=== PATIENT | male | born 1950 | race Caucasian/White ===

== ENCOUNTER → 2024-07-04 14:03 | Outpatient (CLI) | payer MEDICARE, OTHER, SELFPAY ==
[2024-07-04 15:37] LABS: Add Manual Diff / Slide Review NO; Basophils Absolute Auto 100 /uL (0-100); Eosinophils Absolute Auto 700 /uL (0-450); Eosinophils Percent Auto 9.7 % (2-4); Hematocrit 47.2 % (41-53); Hemoglobin 15.5 g/dL (13.5-17.5); Lymphocytes Absolute Auto 1900 /uL (1100-4500); Lymphocytes Percent Auto 24.5 % (25-40); Mean Corpuscular HGB Conc 32.9 % (30-36); Mean Corpuscular Hemoglobin 31.1 PG (26-34); Mean Corpuscular Volume 94.7 fL (80-100); Monocytes Absolute Auto 700 /uL (0-900); Monocytes Percent Auto 8.9 % (3-14); Neutrophils Absolute Auto 4200 /uL (1500-7000); Neutrophils Percent Auto 55.9 % (50-75); Platelet Count 148 X10^3/uL (150-400); Red Blood Cell Count 4.98 X10^6/uL (4.5-5.9); Red Cell Distribution Width 13.7 % (11.6-14.8); White Blood Cell Count 7.6 X10^3/uL (4.5-11.0)
[2024-07-04 16:02] LABS: Alanine Aminotransferase 32 IU/L (<50); Albumin 4.2 g/dL (3.5-5.0); Albumin Globulin Ratio 1.8 (1.0-2.8); Alkaline Phosphatase 107 U/L (38-126); Aspartate Aminotransferase 38 IU/L (17-59); BUN Creatinine Ratio 19.6 (6-22); Bilirubin Total 0.5 mg/dL (0.2-1.3); Blood Urea Nitrogen 39 mg/dL (9-20); Calcium 9.5 mg/dL (8.4-10.2); Carbon Dioxide 26 mmol/L (22-32); Chloride 104 mmol/L (98-107); Cholesterol 142 mg/dL (140-199); Estimated Glomerular Filt Rate 34 mL/min (>60); Globulin 2.4 g/dL (1.7-4.1); Glucose 134 mg/dL (80-110); HDL Cholesterol 35 mg/dL (40-60); HEMOLYSIS < 15 (0-50); LDL Cholesterol Calculated 61 mg/dL (<100); Potassium 4.3 mmol/L (3.4-5.1); Sodium 140 mmol/L (137-145); Total Protein 6.6 g/dL (6.3-8.2); Triglycerides 230 mg/dL (35-150)
[2024-07-04 18:14] LABS: Creatinine Urine Random 49.06 mg/dL
[2024-07-04 18:41] LABS: Microalbumin Urine Random 52.5 mg/dL (0-1.6)
== END ==
PROVIDERS: PCP Family Medicine; Referring Provider Family Medicine; Visit Provider Family Medicine
DX: E11.22 Type 2 diabetes mellitus with diabetic chronic kidney disease (principal); Z79.4 Long term (current) use of insulin; E78.5 Hyperlipidemia, unspecified; Z86.73 Personal history of transient ischemic attack (TIA), and cerebral infarction without residual deficits; N18.30 Chronic kidney disease, stage 3 unspecified; I12.9 Hypertensive chronic kidney disease with stage 1 through stage 4 chronic kidney disease, or unspecified chronic kidney disease
CPT/HCPCS: 36415; 80053; 80061; 82043; 82570; 83036; 85025

== ENCOUNTER 2024-08-09 10:49 | Emergency (ER) | payer MEDICARE, OTHER, SELFPAY ==
[2024-08-09] VITALS (18 sets, daily range): BP systolic 144–231; BP diastolic 68–95; PULSE 65–73; RESP 15–18; TEMP 36.7; O2SAT 92–97; BMI 34.9
--- NOTE | 2024-08-09 11:00 | DI.RAD.S_ITS ---
PROCEDURE: XR CHEST 1V INDICATIONS: Possible stroke TECHNIQUE: One view of the chest was acquired. COMPARISON: None. FINDINGS: Surgical changes and devices: None. Lungs and pleura: No dense consolidation or pleural effusions. Mediastinum: Normal heart size Bones and chest wall: Degenerative changes IMPRESSION: No acute radiographic abnormality on this single view study. Dictated by: Ayad Johnson M.D. on 08/09/2024 at 11:15 Approved by: Ayad Johnson M.D. on 08/09/2024 at 11:15
--- NOTE | 2024-08-09 11:00 | DI.CT.S_ITS ---
PROCEDURE: CT HEAD/BRAIN WO CON INDICATIONS: blurred vision right eye TECHNIQUE: Noncontrast 4.5 mm thick angled axial sections acquired from the foramen magnum to the vertex, with coronal and sagittal reformats. For radiation dose reduction, the following was used: automated exposure control, adjustment of mA and/or kV according to patient size. COMPARISON: None. FINDINGS: Image quality: Excellent CSF spaces: Basal cisterns are patent. Lateral ventricles are symmetric. Volume: Vascular calcifications. Periventricular white matter disease is commonly seen with chronic microangiopathy. Volume loss is present. These findings are moderate Brain: No intracranial hemorrhage. Frausto-white differentiation is grossly maintained. Craniofacial structures: No significant paranasal sinus opacity. No mastoid effusions. Lens replacements. IMPRESSION: No acute intracranial abnormality. If there is high concern for parenchymal pathology, consider further evaluation with MRI. Lens replacements. No significant noncontrast CT abnormality in the right orbit. Dictated by: Ayad Johnson M.D. on 08/09/2024 at 11:16 Approved by: Ayad Johnson M.D. on 08/09/2024 at 11:17
--- NOTE | 2024-08-09 11:03 | EKG_ITS ---
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
[2024-08-09 11:28] LABS: Add Manual Diff / Slide Review NO; Basophils Absolute Auto 100 /uL (0-100); Basophils Percent Auto 0.8 % (0-2); Eosinophils Absolute Auto 600 /uL (0-450); Hemoglobin 15.3 g/dL (13.5-17.5); Lymphocytes Absolute Auto 1600 /uL (1100-4500); Lymphocytes Percent Auto 23.9 % (25-40); Mean Corpuscular HGB Conc 33.4 % (30-36); Mean Corpuscular Hemoglobin 31.5 PG (26-34); Mean Corpuscular Volume 94.3 fL (80-100); Monocytes Absolute Auto 600 /uL (0-900); Monocytes Percent Auto 9.6 % (3-14); Neutrophils Absolute Auto 3800 /uL (1500-7000); Neutrophils Percent Auto 56.7 % (50-75); Platelet Count 161 X10^3/uL (150-400); Red Blood Cell Count 4.88 X10^6/uL (4.5-5.9); Red Cell Distribution Width 13.8 % (11.6-14.8); White Blood Cell Count 6.8 X10^3/uL (4.5-11.0)
[2024-08-09 11:42] LABS: INR 0.9 (0.9-1.3); Prothrombin Time 10.1 SECONDS (9.4-12.5)
[2024-08-09 11:45] LABS: PTT Partial Thromboplastin Tim 32 SECONDS (25.1-36.5)
[2024-08-09 11:50] LABS: Alanine Aminotransferase 34 IU/L (<50); Albumin 4.2 g/dL (3.5-5.0); Albumin Globulin Ratio 1.6 (1.0-2.8); Alkaline Phosphatase 141 U/L (38-126); Aspartate Aminotransferase 37 IU/L (17-59); BUN Creatinine Ratio 23.3 (6-22); Bilirubin Total 0.6 mg/dL (0.2-1.3); Blood Urea Nitrogen 42 mg/dL (9-20); Calcium 9.1 mg/dL (8.4-10.2); Carbon Dioxide 25 mmol/L (22-32); Chloride 101 mmol/L (98-107); Creatine Kinase 187 U/L (55-170); Estimated Glomerular Filt Rate 39 mL/min (>60); Globulin 2.6 g/dL (1.7-4.1); Glucose 302 mg/dL (80-110); HEMOLYSIS 33 (0-50); Magnesium 2.5 mg/dL (1.6-2.3); Sodium 134 mmol/L (137-145); Total Protein 6.8 g/dL (6.3-8.2)
[2024-08-09 12:01] LABS: Troponin I 0.015 ng/mL (0.01-0.034)
[2024-08-09 13:15] LABS: Appearance Urine UA CLEAR; Bilirubin Urine UA NEGATIVE (NEGATIVE); Color Urine UA YELLOW; Glucose Urine UA 2+ g/dL (Negative); Ketones Urine UA NEGATIVE (NEGATIVE); Leukocyte Esterase Urine UA NEGATIVE (NEGATIVE); Nitrite Urine UA NEGATIVE (Negative); Occult Blood Urine UA NEGATIVE (Negative); Protein Urine UA 1+ (Negative); Ur Creatinine Normal (Normal); Ur Specific Gravity Normal (Normal); Urine Amphetamines Negative (Negative); Urine Barbiturates Negative (Negative); Urine Benzodiazepines Negative (Negative); Urine Cocaine Negative (Negative); Urine MDMA Negative (Negative); Urine Methadone Negative (Negative); Urine Methamphetamines Negative (Negative); Urine Opiates Negative (Negative); Urine Oxycodone Negative (Negative); Urine Phencyclidine Negative (Negative); Urine THC Negative (Negative); Urine Tricyclic Antidepressant Negative (Negative); Urine pH Normal (Normal); Urobilinogen Urine UA 0.2 E.U./dL (0.2); pH Urine UA 6.5 (4.5-8.0)
[2024-08-09 13:23] LABS: Bacteria Urine None Seen; Culture Indicated Urine Cult Not Indicated; RBC Urine None Seen (0-5/HPF); Squamous Epithelial Cell Urine None Seen (0-5/HPF); Urine Volume 10mL (spun); WBC Urine None Seen (0-5/HPF)
--- NOTE | 2024-08-09 13:50 | ED.GENADULT ---
HPI - General Adult General Chief complaint: Eye Problems Stated complaint: blurred vision Time Seen by Provider: 08/09/24 11:09 Mode of arrival: Ambulatory History of Present Illness HPI narrative: 74-year-old gentleman with a history of hypertension, hyperlipidemia diabetes prior cataract surgery, left eye abnormality that at baseline leaves him seeing outlines and shapes comes in with complaints of decreased vision in the right eye since August 07. He describes slightly blurry, no pain no limitation to extraocular eye movement. No significant headaches and no other neurologic findings. Related Data Home Medications Medication Instructions Recorded Confirmed albuterol sulfate 90 mcg/actuation inhalation 06/12/24 07/04/24 aerosol inhaler atorvastatin 80 mg tablet mg PO DAILY 07/04/24 07/04/24 clopidogrel 75 mg tablet mg PO DAILY 07/04/24 07/04/24 empagliflozin 25 mg tablet mg PO DAILY 07/04/24 07/04/24 (Jardiance) gabapentin 400 mg capsule mg PO BID 07/04/24 07/04/24 insulin glargine 100 unit/mL (3 50 unit SUBCUT DAILY 07/04/24 07/04/24 mL) subcutaneous pen (Lantus Solostar U-100 Insulin) Previous Rx's Medication Instructions Recorded losartan 25 mg tablet 25 mg PO DAILY blood pressure #90 07/04/24 tabs trazodone 50 mg tablet 50 mg PO BEDTIME PRN sleep #90 tabs 07/27/24 amlodipine 10 mg tablet 10 mg PO DAILY #90 tabs 07/30/24 glimepiride 4 mg tablet 4 mg PO BID #180 tabs 07/30/24 Allergies Allergy/AdvReac Type Severity Reaction Status Date / Time No Known Drug Allergies Allergy Verified 08/09/24 10:51 Review of Systems Review of Systems Narrative: Pertinent positive and negative findings as per HPI Patient History Medical History (Updated 08/09/24 @ 14:02 by Kathrin Escobar MD) History of stroke Hyperlipidemia, unspecified Benign essential hypertension Type 2 diabetes mellitus with chronic kidney disease, with long-term current use of insulin Social History Smoking Status: Former smoker Smoking Status: Former smoker Exam Initial Vital Signs Initial Vital Signs: Vital Signs Temperature 98.1 F 08/09/24 10:51 Pulse Rate 70 08/09/24 10:51 Respiratory Rate 15 08/09/24 10:51 Blood Pressure 231/91 H 08/09/24 10:51 Pulse Oximetry 95 08/09/24 10:51 Oxygen Delivery Method Room Air 08/09/24 10:51 General: Healthy appearing, in no acute distress. Able to give a complete and coherent history. Well-nourished well-developed HEENT: Moist mucous membranes, normal sclera with reactive pupils, retinal exam is attempted bilaterally. He does have cataract lens is in place. An and unable to focus passed the cataract lenses. There was no tenderness around the right eye. He has had prior eyelid surgery and there is some subtle differences that he feels or his baseline. Visual acuity is 20/70 on the right and shapes and outlines on the left which is his baseline. Eye pressure on the right is 20 measured with Isaac-Pen. Respiratory: Lungs are clear to auscultation, no wheezing no rales no rhonchi. Full and symmetrical air movement Cardiac: Regular rate and rhythm no murmurs no bruits Abdomen: Soft, nontender, good bowel tones, no flank pain Skin: Warm and dry, no rashes Neurologic: Grossly neurologically intact with no obvious asymmetries or abnormalities. NIH is 0 Extremities: No trauma, well perfused Psych: Cooperative, appropriate insight and affect Course Orders Ordered: ED Orders 08/09/24 11:00 CT head/brain wo con Stat XR chest 1V Stat EKG-12 Lead Stat 08/09/24 11:18 Complete Blood Count AUTO DIFF Stat Comprehensive Metabolic Panel Stat Magnesium Stat PTT Partial Thromboplastin [place] Stat Prothrombin Time INR Stat Troponin & CK Cardiac Panel Stat 08/09/24 11:40 Urinalysis and Microscopic Stat Urine Drug Screen, Rapid Stat Ondansetron HCl (Ondansetron 4 Mg/2 Ml Inj) 4 mg IV NOW PRN PRN Reason: Nausea And Vomiting Ondansetron HCl (Ondansetron 4 Mg Odt) 4 mg SL NOW PRN PRN Reason: Nausea And Vomiting Vital Signs Vital signs: Vital Signs - 8 hr 08/09/24 10:51 08/09/24 10:57 08/09/24 10:58 Temperature 98.1 F Pulse Rate 70 Respiratory Rate 15 Blood Pressure 231/91 H 218/93 H Pulse Oximetry 95 93 Oxygen Delivery Method Room Air 08/09/24 10:58 08/09/24 11:00 08/09/24 11:00 Temperature Pulse Rate 71 73 Respiratory Rate Blood Pressure 211/88 H Pulse Oximetry 93 95 Oxygen Delivery Method Room Air 08/09/24 11:12 08/09/24 11:12 08/09/24 11:30 Temperature Pulse Rate 73 69 Respiratory Rate 18 Blood Pressure 212/89 H Pulse Oximetry 93 97 Oxygen Delivery Method 08/09/24 11:31 08/09/24 11:31 08/09/24 11:42 Temperature Pulse Rate 68 73 Respiratory Rate Blood Pressure 202/85 H Pulse Oximetry 96 94 Oxygen Delivery Method Room Air 08/09/24 11:42 08/09/24 12:00 08/09/24 12:01 Temperature Pulse Rate 66 66 Respiratory Rate Blood Pressure 210/85 H Pulse Oximetry 94 94 Oxygen Delivery Method 08/09/24 12:01 08/09/24 12:30 08/09/24 12:31 Temperature Pulse Rate 67 67 Respiratory Rate Blood Pressure 149/68 H Pulse Oximetry 95 94 Oxygen Delivery Method 08/09/24 12:31 Temperature Pulse Rate Respiratory Rate Blood Pressure 163/72 H Pulse Oximetry Oxygen Delivery Method Medical Decision Making Lab Data 08/09/24 11:18 08/09/24 11:18 Labs: Lab Results 08/09/24 08/09/24 08/09/24 Range/Units 11:18 11:40 11:40 WBC 6.8 (4.5-11.0) X10^3/uL RBC 4.88 (4.5-5.9) X10^6/uL Hgb 15.3 (13.5-17.5) g/dL Hct 46.0 (41-53) % MCV 94.3 (80-100) fL MCH 31.5 (26-34) PG MCHC 33.4 (30-36) % RDW 13.8 (11.6-14.8) % Plt Count 161 (150-400) X10^3/uL Neut % (Auto) 56.7 (50-75) % Lymph % (Auto) 23.9 L (25-40) % [place] % (Auto) 9.6 (3-14) % Eos % (Auto) 9.0 H (2-4) % Baso % (Auto) 0.8 (0-2) % Neut # (Auto) 3800 (9036-1428) /uL Lymph # (Auto) 1600 (2798-5200) /uL [place] # (Auto) 600 (0-900) /uL Eos # (Auto) 600 H (0-450) /uL Baso # (Auto) 100 (0-100) /uL PT 10.1 (9.4-12.5) SECONDS INR 0.9 (0.9-1.3) APTT 32 (25.1-36.5) SECONDS Sodium 134 L (137-145) mmol/L Potassium 5.0 (3.4-5.1) mmol/L Chloride 101 (98-107) mmol/L Carbon Dioxide 25 (22-32) mmol/L BUN 42 H (9-20) mg/dL Creatinine 1.80 H (0.66-1.25) mg/dL Estimated GFR 39 L (>60) mL/min BUN/Creatinine Ratio 23.3 H (6-22) Glucose 302 H (80-110) mg/dL Calcium 9.1 (8.4-10.2) mg/dL Magnesium 2.5 H (1.6-2.3) mg/dL Total Bilirubin 0.6 (0.2-1.3) mg/dL AST 37 (17-59) IU/L ALT 34 (<50) IU/L Alkaline Phosphatase 141 H (38-126) U/L Total Creatine Kinase 187 H (55-170) U/L Troponin I 0.015 (0.01-0.034) ng/mL Total Protein 6.8 (6.3-8.2) g/dL Albumin 4.2 (3.5-5.0) g/dL Globulin 2.6 (1.7-4.1) g/dL Albumin/Globulin Ratio 1.6 (1.0-2.8) Urine Color Yellow Urine Appearance Clear Urine pH 6.5 Normal (4.5-8.0) Ur Specific [place] 1.010 (1.000-1.035) Urine Protein 1+ H (Negative) Urine Glucose (UA) 2+ H (Negative) g/dL Urine Ketones Negative (NEGATIVE) Urine Occult Blood Negative (Negative) Urine Nitrate Negative (Negative) Urine Bilirubin Negative (NEGATIVE) Urine Urobilinogen 0.2 (0.2) E.U./dL Ur Leukocyte Esterase Negative (NEGATIVE) Urine RBC None seen (0-5/HPF) Urine WBC None seen (0-5/HPF) Ur Squamous Epith Cells None seen (0-5/HPF) Urine Bacteria None seen (None) Ur Culture Indicated? Cult not indicated Vol Urine Centrifuged 10ml (spun) U Opiates 300ng/mL cut Negative (Negative) Ur Oxycodone Screen Negative (Negative) Urine Methadone Screen Negative (Negative) Ur Barbiturates Screen Negative (Negative) U Tricyclic Antidepress Negative (Negative) Ur Phencyclidine Scrn Negative (Negative) Ur Amphetamines Screen Negative (Negative) U Methamphetamines Scrn Negative (Negative) Ur MDMA Scrn (Ecstasy) Negative (Negative) U Benzodiazepines Scrn Negative (Negative) Urine Cocaine Screen Negative (Negative) U Marijuana (THC) Screen Negative (Negative) Urine Specific [place] Normal (Normal) Ur Creatinine Normal (Normal) Point of Care Testing Glucose POC 302 Point of care testing: Point of Care Testing Glucose POC [address] scan - head: Radiologist's Impression: PROCEDURE: CT HEAD/BRAIN WO CON INDICATIONS: blurred vision right eye TECHNIQUE: Noncontrast 4.5 mm thick angled axial sections acquired from the foramen magnum to the vertex, with coronal and sagittal reformats. For radiation dose reduction, the following was used: automated exposure control, adjustment of mA and/or kV according to patient size. COMPARISON: None. FINDINGS: Image quality: Excellent CSF spaces: Basal cisterns are patent. Lateral ventricles are symmetric. Volume: Vascular calcifications. Periventricular white matter disease is commonly seen with chronic microangiopathy. Volume loss is present. These findings are moderate Brain: No intracranial hemorrhage. Frausto-white differentiation is grossly maintained. Craniofacial structures: No significant paranasal sinus opacity. No mastoid effusions. Lens replacements. IMPRESSION: No acute intracranial abnormality. If there is high concern for parenchymal pathology, consider further evaluation with MRI. Lens replacements. No significant noncontrast CT abnormality in the right orbit. Dictated by: Ayad Johnson M.D. on 08/09/2024 at 11:16 MDM Narrative Medical decision making narrative: CC: Blurred vision right eye, 48 hours Complicating co-morbidities: Diabetes, hypertension, hyperlipidemia Data collected from: patient Medical records reviewed: Notes from ophthalmology on June 13, 2024 indicate that he has had similar complaints with them with intermittent episodes of blurred vision in the right eye. He has been seen previously for diabetic ocular evaluation both eyes. Differential considered: Stroke, baseline exacerbation, small retinal bleed, retro-orbital abscess Exam documented above, pertinent findings include: Exam is actually relatively benign. Visual acuity is 20 70 in the ER today. Per Ophthalmology notes at the end of May Lab Test results independently reviewed as above. Pertinent findings: CBC is unremarkable Chemistries are fairly reassuring. Creatinine is actually slightly better than his baseline at 1.8. Independently reviewed EKG: Sinus rhythm at a rate of 68 with no acute ischemic changes Imaging studies independently reviewed: CT scan is unremarkable Discussion: 74-year-old gentleman with hypertension diabetes with decreased vision acutely in the right eye. Has been seen for this within the last 3 months by his engraved roller inspector. No obvious stroke, infection, mass increased pressure or obvious external abnormality appreciated on my exam today. Encouraged patient to contact his engraved roller inspector explaining that he was seen in the emergency department and needed further evaluation. He is making eye appointment as we are arranging discharge for him. Discharge Plan Departure Patient Disposition: Home Clinical Impression: Alteration in vision Activity Restrictions/Additional Instructions: Thank you for coming in today With the acute change in your right eye vision you were evaluated for stroke as well as medical abnormalities. The CT scan of your brain does not show significant abnormalities, no evidence of acute stroke and specifically with a noncontrast CT scan there was no abnormality in the right orbit With my limited ER ophthalmoscope exam I did have difficulty seeing your retina on both sides. Eye pressures were 20 and 21 on the right side At this time there was no obvious medical abnormality, stroke, intracranial growth, infection or other abnormalities that would require additional imaging or hospitalization. I am going to suggest that you contact your engraved roller inspector for an ER follow up visit for acute vision change in your right eye. If you find that you are getting worse or develop any new symptoms, please feel free to return to the emergency department for further evaluation. Prescriptions: No Action albuterol sulfate 90 mcg/actuation HFA aerosol inhaler inhalation atorvastatin 80 mg tablet PO DAILY clopidogrel 75 mg tablet PO DAILY Jardiance 25 mg tablet PO DAILY gabapentin 400 mg capsule PO BID insulin glargine [Lantus Solostar U-100 Insulin] 100 unit/mL (3 mL) insulin pen 50 unit SUBCUT DAILY Patient Comments: [NO ORIGINAL SIG] trazodone 50 mg tablet 50 mg PO BEDTIME PRN (Reason: sleep) Qty: 90 3RF amlodipine 10 mg tablet 10 mg PO DAILY Qty: 90 3RF glimepiride 4 mg tablet 4 mg PO BID Qty: 180 3RF losartan 25 mg tablet 25 mg PO DAILY Qty: 90 3RF Referrals: Kim Rogers DO [Primary Care Provider] - Stand Alone Forms: Patient Portal/API/Survey
== END 2024-08-09 14:17 | disposition home or self-care (01) ==
PROVIDERS: Emergency Provider Emergency Medicine; PCP Family Medicine
DX: H53.8 Other visual disturbances (principal); I10 Essential (primary) hypertension; E78.5 Hyperlipidemia, unspecified; E11.9 Type 2 diabetes mellitus without complications; Z79.4 Long term (current) use of insulin; Z87.891 Personal history of nicotine dependence
CPT/HCPCS: 36415; 70450; 71045; 80053; 80305; 81001; 82550; 82962; 83735; 84484; 85025; 85610; 85730; 93005; 99284

== ENCOUNTER 2024-09-02 15:54 | Emergency (ER) | payer MEDICARE, OTHER, SELFPAY ==
[2024-09-02] VITALS (46 sets, daily range): BP systolic 173–249; BP diastolic 76–146; PULSE 59–83; RESP 12–24; TEMP 36.6; O2SAT 94–98; BMI 33.4
--- NOTE | 2024-09-02 16:04 | DI.RAD.S_ITS ---
PROCEDURE: XR CHEST 1V INDICATIONS: chest pain TECHNIQUE: One view of the chest was acquired. COMPARISON: [facility], CR, XR CHEST 1V, 08/09/2024, 10:58. FINDINGS: Surgical changes and devices: None. Lungs and pleura: Lungs are clear. No pleural effusions or pneumothorax. Mediastinum: Mediastinal contours appear normal. Heart size is normal. Bones and chest wall: No suspicious bony lesions. Overlying soft tissues appear unremarkable. IMPRESSION: No acute cardiopulmonary abnormality is seen. Dictated by: Destinee Steve M.D. on 09/02/2024 at 15:30 Approved by: Destinee Steve M.D. on 09/02/2024 at 15:32
--- NOTE | 2024-09-02 16:06 | EKG_ITS ---
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
[2024-09-02] MEDS: ASPIRIN 81 MG CHEW TAB 324 MG PO (16:21)
--- NOTE | 2024-09-02 16:21 | ED_ITS ---
HPI - Chest Pain <Ximena Cárdenas DO - Last Filed: 09/03/24 18:41> General Chief Complaint: Chest Pain Stated Complaint: Chest pain, short of breath and lack of energy Time Seen by Provider: 09/02/24 16:21 Source: patient Mode of arrival: Ambulatory History of Present Illness HPI narrative: Patient is 74-year-old male history of CVA hypertension presenting today with shortness of breath. He reports that he has had increasing shortness of breath with exertion for awhile. Last night he was unable to sleep or lay flat due to shortness of breath. He does have some chest pain with exertion but really mostly shortness of breath. He has no known coronary artery disease. No fever or chills. He has not noted any significant weight gain or abdominal swelling. Related Data Home Medications Medication Instructions Recorded Confirmed albuterol sulfate 90 mcg/actuation 2 puff inhalation Q4HR PRN 06/12/24 09/03/24 aerosol inhaler Shortness Of Breath Or Wheezing atorvastatin 80 mg tablet 80 mg PO DAILY 07/04/24 09/03/24 clopidogrel 75 mg tablet 75 mg PO DAILY 07/04/24 09/03/24 gabapentin 400 mg capsule 400 mg PO BID 07/04/24 09/03/24 insulin glargine 100 unit/mL (3 50 unit SUBCUT DAILY 07/04/24 09/03/24 mL) subcutaneous pen (Lantus Solostar U-100 Insulin) Previous Rx's Medication Instructions Recorded trazodone 50 mg tablet 50 mg PO BEDTIME PRN sleep #90 tabs 07/27/24 amlodipine 10 mg tablet 10 mg PO DAILY #90 tabs 07/30/24 glimepiride 4 mg tablet 4 mg PO BID #180 tabs 07/30/24 losartan 100 mg tablet 100 mg PO DAILY blood pressure 08/14/24 #100 tabs pioglitazone 15 mg tablet (Actos) 15 mg PO DAILY diabetes #100 tabs 08/14/24 Allergies Allergy/AdvReac Type Severity Reaction Status Date / Time No Known Drug Allergies Allergy Verified 09/02/24 16:15 Patient History <Ximena Cárdenas DO - Last Filed: 09/03/24 18:41> Medical History (Updated 09/03/24 @ 07:36 by Ximena Cárdenas DO) History of stroke Hyperlipidemia, unspecified Benign essential hypertension Type 2 diabetes mellitus with chronic kidney disease, with long-term current use of insulin Social History Smoking Status: Former smoker Smoking Status: Former smoker Exam <DO Michael Olivas Last Filed: 09/03/24 18:41> Initial Vital Signs Initial Vital Signs: Vital Signs Temperature 97.9 F 09/02/24 15:55 Pulse Rate 74 09/02/24 15:55 Respiratory Rate 24 09/02/24 15:55 Blood Pressure 233/102 H 09/02/24 15:55 Pulse Oximetry 97 09/02/24 15:55 Oxygen Delivery Method Room Air 09/02/24 15:55 GENERAL: Alert 74 male and in no acute distress. HEENT: Head atraumatic,EOMI, pupils reactive, face symmetric, moist mucous membranes CARDIOVASCULAR: Regular rate and rhythm without murmurs, rubs or gallops. RESPIRATORY: Decreased breath sounds bilaterally clear without wheezing rales or rhonchi no conversational dyspnea ABDOMEN: Soft, nontender. Normoactive bowel sounds all 4 quadrants. No guarding or rebound. EXTREMITIES: Normal range of motion, no clubbing or edema. Neurovascularly intact NEUROLOGICAL: Alert and oriented x4.Normal gait and speech. Cranial nerves II through XII grossly intact. SKIN: Warm, dry, no laceration, no petechiae, no rashes or lesions. <Hector Grimm DO - Last Filed: 09/03/24 00:34> Initial Vital Signs Initial Vital Signs: Vital Signs Temperature 97.9 F 09/02/24 15:55 Pulse Rate 74 09/02/24 15:55 Respiratory Rate 24 09/02/24 15:55 Blood Pressure 233/102 H 09/02/24 15:55 Pulse Oximetry 97 09/02/24 15:55 Oxygen Delivery Method Room Air 09/02/24 15:55 Course <Ximena Cárdenas DO - Last Filed: 09/03/24 18:41> Orders Ordered: Discontinued Medications Amlodipine Besylate (Amlodipine 5 Mg Tablet) 10 mg PO DAILY [facility] Last Admin: 09/03/24 09:00 Dose: 10 mg Documented By: SPF Aspirin (Aspirin 81 Mg Chew Tab) 324 mg PO NOW ONE Stop: 09/02/24 16:05 Last Admin: 09/02/24 16:21 Dose: 324 mg Documented By: SB Atorvastatin Calcium (Atorvastatin 20 Mg Tablet) 80 mg PO DAILY [facility] Last Admin: 09/03/24 09:01 Dose: 80 mg Documented By: SPF Enoxaparin Sodium (Enoxaparin 30 Mg/0.3 Ml Syringe) 30 mg SUBCUT NOW ONE Stop: 09/02/24 21:18 Last Admin: 09/02/24 21:48 Dose: 30 mg Documented By: SB Enoxaparin Sodium (Enoxaparin 30 Mg/0.3 Ml Syringe) 30 mg SUBCUT DAILY ONE Stop: 09/03/24 09:01 Last Admin: 09/03/24 09:05 Dose: 30 mg Documented By: SPF Furosemide (Furosemide 40 Mg/4 Ml Vial) 40 mg IV NOW ONE Stop: 09/02/24 16:28 Last Admin: 09/02/24 16:32 Dose: 40 mg Documented By: SB Furosemide (Furosemide 40 Mg/4 Ml Vial) 20 mg IV NOW ONE Stop: 09/03/24 08:36 Last Admin: 09/03/24 09:00 Dose: 20 mg Documented By: SPF Gabapentin (Gabapentin 400 Mg Capsule) 400 mg PO BID [facility] Last Admin: 09/03/24 09:02 Dose: 400 mg Documented By: SPF Glimepiride (Glimepiride 2 Mg Tablet) 4 mg PO BID [facility] Last Admin: 09/03/24 09:03 Dose: 4 mg Documented By: SPF Hydralazine HCl (Hydralazine 20 Mg/Ml Vial) 10 mg IV NOW ONE Stop: 09/02/24 21:46 Last Admin: 09/02/24 21:51 Dose: Not Given Documented By: SB Insulin Human Lispro (Insulin Lispro 100 Unit/Ml 3ml Vial) 0 unit SUBCUT [facility]; Protocol Last Admin: 09/03/24 12:18 Dose: 1 unit Documented By: SPF Co-signed By: BAY Admin: 09/03/24 07:59 Dose: Not Given Documented By: SPF Labetalol HCl (Labetalol 20 Mg/4 Ml Syringe) 10 mg IV NOW ONE Stop: 09/02/24 21:22 Last Admin: 09/02/24 21:45 Dose: Not Given Documented By: SB Losartan Potassium (Losartan 50 Mg Tablet) 100 mg PO DAILY [facility] Last Admin: 09/03/24 09:02 Dose: 100 mg Documented By: SPF Nitroglycerin (Nitroglycerin 0.4 Mg Sl Tab) 0.4 mg SL NOW ONE Stop: 09/02/24 16:28 Last Admin: 09/02/24 16:31 Dose: 0.4 mg Documented By: VALENCIA Trazodone HCl (Trazodone 50 Mg Tablet) 50 mg PO BEDTIME ONE Stop: 09/03/24 01:11 Last Admin: 09/03/24 01:21 Dose: 50 mg Documented By: HNG Vital Signs Vital signs: Vital Signs - 8 hr 09/03/24 11:00 09/03/24 11:01 09/03/24 11:01 Pulse Rate 63 64 Respiratory Rate 17 16 Blood Pressure 166/72 H Pulse Oximetry 94 95 Oxygen Delivery Method Room Air 09/03/24 11:30 09/03/24 12:00 09/03/24 12:01 Pulse Rate 71 74 Respiratory Rate 11 L 24 Blood Pressure 194/87 H Pulse Oximetry 96 95 Oxygen Delivery Method 09/03/24 12:01 09/03/24 12:55 Pulse Rate 74 85 Respiratory Rate 18 18 Blood Pressure 170/68 H Pulse Oximetry 95 97 Oxygen Delivery Method Room Air Room Air <Hector Grimm, - Last Filed: 09/03/24 00:34> Orders Ordered: Discontinued Medications Amlodipine Besylate (Amlodipine 5 Mg Tablet) 10 mg PO DAILY [facility] Last Admin: 09/03/24 09:00 Dose: 10 mg Documented By: ELMA Aspirin (Aspirin 81 Mg Chew Tab) 324 mg PO NOW ONE Stop: 09/02/24 16:05 Last Admin: 09/02/24 16:21 Dose: 324 mg Documented By: VALENCIA Atorvastatin Calcium (Atorvastatin 20 Mg Tablet) 80 mg PO DAILY [facility] Last Admin: 09/03/24 09:01 Dose: 80 mg Documented By: ELMA Enoxaparin Sodium (Enoxaparin 30 Mg/0.3 Ml Syringe) 30 mg SUBCUT NOW ONE Stop: 09/02/24 21:18 Last Admin: 09/02/24 21:48 Dose: 30 mg Documented By: VALENCIA Enoxaparin Sodium (Enoxaparin 30 Mg/0.3 Ml Syringe) 30 mg SUBCUT DAILY ONE Stop: 09/03/24 09:01 Last Admin: 09/03/24 09:05 Dose: 30 mg Documented By: ELMA Furosemide (Furosemide 40 Mg/4 Ml Vial) 40 mg IV NOW ONE Stop: 09/02/24 16:28 Last Admin: 09/02/24 16:32 Dose: 40 mg Documented By: SB Furosemide (Furosemide 40 Mg/4 Ml Vial) 20 mg IV NOW ONE Stop: 09/03/24 08:36 Last Admin: 09/03/24 09:00 Dose: 20 mg Documented By: SPF Gabapentin (Gabapentin 400 Mg Capsule) 400 mg PO BID [facility] Last Admin: 09/03/24 09:02 Dose: 400 mg Documented By: SPF Glimepiride (Glimepiride 2 Mg Tablet) 4 mg PO BID [facility] Last Admin: 09/03/24 09:03 Dose: 4 mg Documented By: SPF Hydralazine HCl (Hydralazine 20 Mg/Ml Vial) 10 mg IV NOW ONE Stop: 09/02/24 21:46 Last Admin: 09/02/24 21:51 Dose: Not Given Documented By: SB Insulin Human Lispro (Insulin Lispro 100 Unit/Ml 3ml Vial) 0 unit SUBCUT [facility]; Protocol Last Admin: 09/03/24 12:18 Dose: 1 unit Documented By: ELMA Co-signed By: BAY Admin: 09/03/24 07:59 Dose: Not Given Documented By: SPF Labetalol HCl (Labetalol 20 Mg/4 Ml Syringe) 10 mg IV NOW ONE Stop: 09/02/24 21:22 Last Admin: 09/02/24 21:45 Dose: Not Given Documented By: SB Losartan Potassium (Losartan 50 Mg Tablet) 100 mg PO DAILY [facility] Last Admin: 09/03/24 09:02 Dose: 100 mg Documented By: SPF Nitroglycerin (Nitroglycerin 0.4 Mg Sl Tab) 0.4 mg SL NOW ONE Stop: 09/02/24 16:28 Last Admin: 09/02/24 16:31 Dose: 0.4 mg Documented By: SB Trazodone HCl (Trazodone 50 Mg Tablet) 50 mg PO BEDTIME ONE Stop: 09/03/24 01:11 Last Admin: 09/03/24 01:21 Dose: 50 mg Documented By: JASIEL Vital Signs Vital signs: Vital Signs - 8 hr 09/03/24 11:00 09/03/24 11:01 09/03/24 11:01 Pulse Rate 63 64 Respiratory Rate 17 16 Blood Pressure 166/72 H Pulse Oximetry 94 95 Oxygen Delivery Method Room Air 09/03/24 11:30 09/03/24 12:00 09/03/24 12:01 Pulse Rate 71 74 Respiratory Rate 11 L 24 Blood Pressure 194/87 H Pulse Oximetry 96 95 Oxygen Delivery Method 09/03/24 12:01 09/03/24 12:55 Pulse Rate 74 85 Respiratory Rate 18 18 Blood Pressure 170/68 H Pulse Oximetry 95 97 Oxygen Delivery Method Room Air Room Air MDM - Chest Pain <Ximena Cárdenas, DO - Last Filed: 09/03/24 18:41> Lab Data 09/02/24 16:08 09/02/24 16:08 Labs: Lab Results 09/02/24 09/02/24 09/02/24 Range/Units 16:08 18:10 20:20 WBC 7.3 (4.5-11.0) X10^3/uL RBC 4.64 (4.5-5.9) X10^6/uL Hgb 14.6 (13.5-17.5) g/dL Hct 44.1 (41-53) % MCV 95.2 (80-100) fL MCH 31.4 (26-34) PG MCHC 33.0 (30-36) % RDW 13.6 (11.6-14.8) % Plt Count 162 (150-400) X10^3/uL Neut % (Auto) 62.5 (50-75) % Lymph % (Auto) 21.3 L (25-40) % Dane % (Auto) 7.3 (3-14) % Eos % (Auto) 8.1 H (2-4) % Baso % (Auto) 0.8 (0-2) % Neut # (Auto) 4500 (2236-0468) /uL Lymph # (Auto) 1500 (4893-3229) /uL Dane # (Auto) 500 (0-900) /uL Eos # (Auto) 600 H (0-450) /uL Baso # (Auto) 100 (0-100) /uL PT 10.4 (9.4-12.5) SECONDS INR 0.9 (0.9-1.3) APTT 33 (25.1-36.5) SECONDS D-Dimer 653 H (<500) ng/ml Sodium 137 (137-145) mmol/L Potassium 5.5 H (3.4-5.1) mmol/L Chloride 105 (98-107) mmol/L Carbon Dioxide 27 (22-32) mmol/L BUN 46 H (9-20) mg/dL Creatinine 1.89 H (0.66-1.25) mg/dL Estimated GFR 36 L (>60) mL/min BUN/Creatinine Ratio 24.3 H (6-22) Glucose 198 H (80-110) mg/dL Calcium 9.5 (8.4-10.2) mg/dL Magnesium 2.4 H (1.6-2.3) mg/dL Total Bilirubin 0.6 (0.2-1.3) mg/dL AST 44 (17-59) IU/L ALT 41 (<50) IU/L Alkaline Phosphatase 106 (38-126) U/L Total Creatine Kinase 306 H (55-170) U/L Troponin I 0.018 0.024 0.043 H (0.01-0.034) ng/mL NT-Pro-B Natriuret Pep 492 H (<450) pg/mL Total Protein 7.2 (6.3-8.2) g/dL Albumin 4.6 (3.5-5.0) g/dL Globulin 2.6 (1.7-4.1) g/dL Albumin/Globulin Ratio 1.8 (1.0-2.8) Lipase 211 (23-300) U/L 09/03/24 Range/Units 08:00 WBC (4.5-11.0) X10^3/uL RBC (4.5-5.9) X10^6/uL Hgb (13.5-17.5) g/dL Hct (41-53) % MCV (80-100) fL MCH (26-34) PG MCHC (30-36) % RDW (11.6-14.8) % Plt Count (150-400) X10^3/uL Neut % (Auto) (50-75) % Lymph % (Auto) (25-40) % Dane % (Auto) (3-14) % Eos % (Auto) (2-4) % Baso % (Auto) (0-2) % Neut # (Auto) (8871-7360) /uL Lymph # (Auto) (2275-9112) /uL Dane # (Auto) (0-900) /uL Eos # (Auto) (0-450) /uL Baso # (Auto) (0-100) /uL PT (9.4-12.5) SECONDS INR (0.9-1.3) APTT (25.1-36.5) SECONDS D-Dimer (<500) ng/ml Sodium (137-145) mmol/L Potassium (3.4-5.1) mmol/L Chloride (98-107) mmol/L Carbon Dioxide (22-32) mmol/L BUN (9-20) mg/dL Creatinine (0.66-1.25) mg/dL Estimated GFR (>60) mL/min BUN/Creatinine Ratio (6-22) Glucose (80-110) mg/dL Calcium (8.4-10.2) mg/dL Magnesium (1.6-2.3) mg/dL Total Bilirubin (0.2-1.3) mg/dL AST (17-59) IU/L ALT (<50) IU/L Alkaline Phosphatase (38-126) U/L Total Creatine Kinase 221 H (55-170) U/L Troponin I 0.026 (0.01-0.034) ng/mL NT-Pro-B Natriuret Pep (<450) pg/mL Total Protein (6.3-8.2) g/dL Albumin (3.5-5.0) g/dL Globulin (1.7-4.1) g/dL Albumin/Globulin Ratio (1.0-2.8) Lipase (23-300) U/L Point of Care Testing Glucose POC 156 ECG Data Attestation: I personally reviewed and interpreted this ECG as follows: Prior ECG tracings: available for review Interpretation: Normal sinus rate rhythm rate 68 MT interval 154 QRS 98 QTC 391 no ischemia no priors to compare Repeat EKGs shows continue with sinus rhythm without ischemic changes MDM Narrative Medical decision making narrative: [facility] CC: Shortness of breath Complicating co-morbidities: Prior CVA insulin-dependent diabetes hypertension hyperlipidemia Medical records reviewed: PCP visit from 08/14/2024 seen there for some vision changes Differential considered: Congestive heart failure pulmonary embolism acute coronary syndrome Exam documented above, pertinent findings include: Patient does have significant decreased breast sounds no peripheral edema abdomen does not appear to have any significant anasarca Lab Test results independently reviewed as above. Pertinent findings: CBC does not show any anemia or leukocytosis Chemistry panel shows mild hyperkalemia potassium 5.5 creatinine 1.89 which does seem to be his baseline previously was 1.8 magnesium 2.4 Troponin 0.018, BNP 492 dimer 653 Independently reviewed EKG as above EKGs both show sinus rhythm without acute ST changes similar to prior Imaging studies independently reviewed: No acute cardiopulmonary process Consultations: [ ] Treatments: Aspirin Lasix nitro Re-evaluations: Patient's pain and breathing have improved Discussion: Patient is 74-year-old male with multiple risk factors including diabetes hypertension CVA hyperlipidemia presenting today with increasing shortness of breath with exertion. It does sound like he had significant orthopnea last night. Does not appear to be significantly fluid overloaded on exam no appreciable anasarca. BNP is 600 chest x-ray does not show any pulmonary edema. Pulmonary embolism is considered D-dimer is 653. No significant hypoxia. At this time signing patient out to for dispostion. Repeat troponin pending. Anticipate admission versus transfer 1800: Received sign-out from morning physician, patient is a 74-year-old male history of hypertension hyperlipidemia diabetes, presenting for exertional chest pain with dyspnea for the past few days, patient pending repeat troponin initial was 0.018, had mild improvement after administration of aspirin nitroglycerin, patient final disposition pending repeat troponin most likely admission versus transfer for cardiac evaluation 2030: Patient re-evaluated no new complaints at this time no chest pain at this time, informed patient of results and need for admission, he states that he would prefer to be transferred to [facility] given he followed with Cardiology there several years ago, did discuss case with rivet machine operator Dr. Ferraro, who agrees patient should be seen for stress test and echo, transfer center will call back for possible admission. Supervisor [employer] states no other recommendations at this time. 2111: Case discussed with Dr. Alvarez, at [facility], agrees with transfer, we will reach out to Dr. Ferraro (cardiology) to verify whether or not to heparinize patient given up trending troponin, awaiting phone call back 2115: Case was discussed with Dr. Ferraro of cardiology again, is recommending Lovenox shot for anticoagulation. 09.03.24 @ 0034: Informed by transfer center no available beds till tomorrow morning after discharges. Dr. Nevarez have resumed care from night physician. Awaiting bed placement at [facility]. Patient is followed by Cardiology there with like to continue care at [facility]. He has rising troponin ruled out for pulmonary embolism did find left upper lobe mass 2.5 x 1.6 cm concerning for pulmonary adenocarcinoma. Patient was quite hypertensive but now blood pressure has improved. Patient awake alert sitting eating breakfast reports still having some mild shortness of breath but does not appear in any acute distress at the moment. Still waiting for bed at [facility]. Daytime echocardiogram ordered repeat troponin pending. He has been started on home medications he was given Lovenox. He has a hospital bed. Trop is down trending. Maybe related to hypertension. Had echo this morning but no report at time of transfer. <Hector Grimm DO - Last Filed: 09/03/24 00:34> Lab Data Labs: Lab Results 09/02/24 09/02/24 09/02/24 Range/Units 16:08 18:10 20:20 WBC 7.3 (4.5-11.0) X10^3/uL RBC 4.64 (4.5-5.9) X10^6/uL Hgb 14.6 (13.5-17.5) g/dL Hct 44.1 (41-53) % MCV 95.2 (80-100) fL MCH 31.4 (26-34) PG MCHC 33.0 (30-36) % RDW 13.6 (11.6-14.8) % Plt Count 162 (150-400) X10^3/uL Neut % (Auto) 62.5 (50-75) % Lymph % (Auto) 21.3 L (25-40) % Dane % (Auto) 7.3 (3-14) % Eos % (Auto) 8.1 H (2-4) % Baso % (Auto) 0.8 (0-2) % Neut # (Auto) 4500 (3462-5157) /uL Lymph # (Auto) 1500 (9731-4679) /uL Dane # (Auto) 500 (0-900) /uL Eos # (Auto) 600 H (0-450) /uL Baso # (Auto) 100 (0-100) /uL PT 10.4 (9.4-12.5) SECONDS INR 0.9 (0.9-1.3) APTT 33 (25.1-36.5) SECONDS D-Dimer 653 H (<500) ng/ml Sodium 137 (137-145) mmol/L Potassium 5.5 H (3.4-5.1) mmol/L Chloride 105 (98-107) mmol/L Carbon Dioxide 27 (22-32) mmol/L BUN 46 H (9-20) mg/dL Creatinine 1.89 H (0.66-1.25) mg/dL Estimated GFR 36 L (>60) mL/min BUN/Creatinine Ratio 24.3 H (6-22) Glucose 198 H (80-110) mg/dL Calcium 9.5 (8.4-10.2) mg/dL Magnesium 2.4 H (1.6-2.3) mg/dL Total Bilirubin 0.6 (0.2-1.3) mg/dL AST 44 (17-59) IU/L ALT 41 (<50) IU/L Alkaline Phosphatase 106 (38-126) U/L Total Creatine Kinase 306 H (55-170) U/L Troponin I 0.018 0.024 0.043 H (0.01-0.034) ng/mL NT-Pro-B Natriuret Pep 492 H (<450) pg/mL Total Protein 7.2 (6.3-8.2) g/dL Albumin 4.6 (3.5-5.0) g/dL Globulin 2.6 (1.7-4.1) g/dL Albumin/Globulin Ratio 1.8 (1.0-2.8) Lipase 211 (23-300) U/L 09/03/24 Range/Units 08:00 WBC (4.5-11.0) X10^3/uL RBC (4.5-5.9) X10^6/uL Hgb (13.5-17.5) g/dL Hct (41-53) % MCV (80-100) fL MCH (26-34) PG MCHC (30-36) % RDW (11.6-14.8) % Plt Count (150-400) X10^3/uL Neut % (Auto) (50-75) % Lymph % (Auto) (25-40) % Dane % (Auto) (3-14) % Eos % (Auto) (2-4) % Baso % (Auto) (0-2) % Neut # (Auto) (9738-5001) /uL Lymph # (Auto) (6043-0776) /uL Dane # (Auto) (0-900) /uL Eos # (Auto) (0-450) /uL Baso # (Auto) (0-100) /uL PT (9.4-12.5) SECONDS INR (0.9-1.3) APTT (25.1-36.5) SECONDS D-Dimer (<500) ng/ml Sodium (137-145) mmol/L Potassium (3.4-5.1) mmol/L Chloride (98-107) mmol/L Carbon Dioxide (22-32) mmol/L BUN (9-20) mg/dL Creatinine (0.66-1.25) mg/dL Estimated GFR (>60) mL/min BUN/Creatinine Ratio (6-22) Glucose (80-110) mg/dL Calcium (8.4-10.2) mg/dL Magnesium (1.6-2.3) mg/dL Total Bilirubin (0.2-1.3) mg/dL AST (17-59) IU/L ALT (<50) IU/L Alkaline Phosphatase (38-126) U/L Total Creatine Kinase 221 H (55-170) U/L Troponin I 0.026 (0.01-0.034) ng/mL NT-Pro-B Natriuret Pep (<450) pg/mL Total Protein (6.3-8.2) g/dL Albumin (3.5-5.0) g/dL Globulin (1.7-4.1) g/dL Albumin/Globulin Ratio (1.0-2.8) Lipase (23-300) U/L Point of Care Testing Glucose POC 156 Imaging Data Chest x-ray: Radiologist's Impression: [address] [address] XRay Report Signed Patient: Myles Quigley MR#: [id number] : 1950 Acct:[id number] Age/Sex: 74 / M Date of Service: 09/02/24 Loc: ED Accession Number: [id number] Procedure: XR chest 1V Ordering Provider: Ximena Cárdenas D.O. PROCEDURE: XR CHEST 1V INDICATIONS: chest pain TECHNIQUE: One view of the chest was acquired. COMPARISON: [facility], CR, XR CHEST 1V, 08/09/2024, 10:58. FINDINGS: Surgical changes and devices: None. Lungs and pleura: Lungs are clear. No pleural effusions or pneumothorax. Mediastinum: Mediastinal contours appear normal. Heart size is normal. Bones and chest wall: No suspicious bony lesions. Overlying soft tissues appear unremarkable. IMPRESSION: No acute cardiopulmonary abnormality is seen. CT scan - chest: Radiologist's Impression: [address] [id number] [address] Scan Report Signed Patient: Myles Quigley MR#: [id number] : 1950 Acct:[id number] Age/Sex: 74 / M Date of Service: 09/02/24 Loc: ED Accession Number: [id number] Procedure: CT angio chest PE protocol Ordering Provider: Hector Grimm D.O. PROCEDURE: CT ANGIO CHEST PE PROTOCOL INDICATIONS: Dyspnea, elevated D-dimer TECHNIQUE: After the administration of intravenous contrast, 2 mm thick sections acquired from the pulmonary apices to the posterior costophrenic angles. 3-dimensional maximum intensity projection (MIP) coronal and sagittal reformats were then acquired through the thorax. For radiation dose reduction, the following was used: automated exposure control, adjustment of mA and/or kV according to patient size. COMPARISON: None. FINDINGS: Image quality: Diagnostic. Pulmonary arteries: Pulmonary arteries are normal in size, and demonstrate no intraluminal filling defects to suggest central pulmonary embolism. Lower Neck: No enlarged lymph nodes. Thyroid: No thyroid nodules which require sonographic follow up, per consensus guidelines. Axillae: No enlarged lymph nodes. Chest Wall: Unremarkable. Bones: Unremarkable. Lungs and Pleura: Moderate centrilobular nodule. Part solid nodule in the left upper lobe measuring 2.5 x 1.6 cm with irregular margins (series 5, image 93). Internal cystic changes present. Diffuse bronchial thickening, with multiple regions of bronchial secretions. Heart: Heart size is normal. No pericardial effusion. Marked coronary artery calcifications. Thoracic Vessels: No aortic aneurysm. Mediastinum and Frida: No enlarged lymph nodes. Esophagus: No wall thickening. No hiatal hernia. Upper Abdomen: Visualized upper abdomen solid organs and bowel loops appear normal. IMPRESSION: No pulmonary embolus. Marked coronary calcifications. Correlate with angina. Consider troponins. Part solid nodule in the left upper lobe measuring 2.5 x 1.6 cm, with internal cystic change. 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 Recommend outpatient PET-CT or repeat CT in 3 months. Diffuse bronchial thickening with mucous impaction. Findings may indicate infectious or inflammatory bronchitis. MDM Narrative Medical decision making narrative: MDM CC: Shortness of breath Complicating co-morbidities: Prior CVA insulin-dependent diabetes hypertension hyperlipidemia Medical records reviewed: PCP visit from 08/14/2024 seen there for some vision changes Differential considered: Congestive heart failure pulmonary embolism acute coronary syndrome Exam documented above, pertinent findings include: Patient does have significant decreased breast sounds no peripheral edema abdomen does not appear to have any significant anasarca Lab Test results independently reviewed as above. Pertinent findings: CBC does not show any anemia or leukocytosis Chemistry panel shows mild hyperkalemia potassium 5.5 creatinine 1.89 which does seem to be his baseline previously was 1.8 magnesium 2.4 Troponin 0.018, BNP 492 dimer 653 Independently reviewed EKG as above EKGs both show sinus rhythm without acute ST changes similar to prior Imaging studies independently reviewed: No acute cardiopulmonary process Consultations: [ ] Treatments: Aspirin Lasix nitro Re-evaluations: Patient's pain and breathing have improved Discussion: Patient is 74-year-old male with multiple risk factors including diabetes hypertension CVA hyperlipidemia presenting today with increasing shortness of breath with exertion. It does sound like he had significant orthopnea last night. Does not appear to be significantly fluid overloaded on exam no appreciable anasarca. BNP is 600 chest x-ray does not show any pulmonary edema. Pulmonary embolism is considered D-dimer is 653. No significant hypoxia. At this time signing patient out to for dispostion. Repeat troponin pending. Anticipate admission versus transfer 1800: Received sign-out from morning physician, patient is a 74-year-old male history of hypertension hyperlipidemia diabetes, presenting for exertional chest pain with dyspnea for the past few days, patient pending repeat troponin initial was 0.018, had mild improvement after administration of aspirin nitroglycerin, patient final disposition pending repeat troponin most likely admission versus transfer for cardiac evaluation 2030: Patient re-evaluated no new complaints at this time no chest pain at this time, informed patient of results and need for admission, he states that he would prefer to be transferred to [facility] given he followed with Cardiology there several years ago, did discuss case with rivet machine operator Dr. Ferraro, who agrees patient should be seen for stress test and echo, transfer center will call back for possible admission. Supervisor Chlorine Liquefaction states no other recommendations at this time. 2111: Case discussed with Dr. Alvarez, at [facility], agrees with transfer, we will reach out to Dr. Ferraro (cardiology) to verify whether or not to heparinize patient given up trending troponin, awaiting phone call back 2115: Case was discussed with Dr. Ferraro of cardiology again, is recommending Lovenox shot for anticoagulation. 09.03.24 @ 0034: Informed by transfer center no available beds till tomorrow morning after discharges. Discharge Plan Departure Patient Disposition: [facility] Clinical Impression: Chest pain, Dyspnea on exertion, Lung mass Prescriptions: No Action albuterol sulfate 90 mcg/actuation HFA aerosol inhaler 2 puff inhalation Q4HR PRN (Reason: Shortness Of Breath Or Wheezing) atorvastatin 80 mg tablet 80 mg PO DAILY clopidogrel 75 mg tablet 75 mg PO DAILY gabapentin 400 mg capsule 400 mg PO BID insulin glargine [Lantus Solostar U-100 Insulin] 100 unit/mL (3 mL) insulin pen 50 unit SUBCUT DAILY Patient Comments: [NO ORIGINAL SIG] trazodone 50 mg tablet 50 mg PO BEDTIME PRN (Reason: sleep) Qty: 90 3RF amlodipine 10 mg tablet 10 mg PO DAILY Qty: 90 3RF glimepiride 4 mg tablet 4 mg PO BID Qty: 180 3RF losartan 100 mg tablet 100 mg PO DAILY Qty: 100 3RF pioglitazone [Actos] 15 mg tablet 15 mg PO DAILY Qty: 100 3RF Referrals: Kim Rogers DO [Primary Care Provider] -
[2024-09-02 16:22] LABS: INR 0.9 (0.9-1.3); Prothrombin Time 10.4 SECONDS (9.4-12.5)
[2024-09-02 16:25] LABS: PTT Partial Thromboplastin Tim 33 SECONDS (25.1-36.5)
--- NOTE | 2024-09-02 16:26 | EKG_ITS ---
[address] [address] [address] [address] Test Date: 2024-09-02 Pat Name: Myles Quigley Department: Room: Gender: Male Functional Manager: : 1950 Requested By: Order Number: [id number] Reading MD: Keven Ravi MD Measurements Intervals [place] Rate: 68 P: 66 RI: 174 QRS: 30 QRSD: 88 T: 62 QT: 372 QTc: 395 Interpretive Statements Normal sinus rhythm Electronically Signed On 09-03-2024 13:38:52 PST by Keven Ravi MD
[2024-09-02 16:28] LABS: Add Manual Diff / Slide Review NO; Basophils Absolute Auto 100 /uL (0-100); Basophils Percent Auto 0.8 % (0-2); Eosinophils Absolute Auto 600 /uL (0-450); Eosinophils Percent Auto 8.1 % (2-4); Hematocrit 44.1 % (41-53); Hemoglobin 14.6 g/dL (13.5-17.5); Lymphocytes Absolute Auto 1500 /uL (1100-4500); Lymphocytes Percent Auto 21.3 % (25-40); Mean Corpuscular Hemoglobin 31.4 PG (26-34); Mean Corpuscular Volume 95.2 fL (80-100); Monocytes Absolute Auto 500 /uL (0-900); Monocytes Percent Auto 7.3 % (3-14); Neutrophils Absolute Auto 4500 /uL (1500-7000); Neutrophils Percent Auto 62.5 % (50-75); Platelet Count 162 X10^3/uL (150-400); Red Blood Cell Count 4.64 X10^6/uL (4.5-5.9); Red Cell Distribution Width 13.6 % (11.6-14.8); White Blood Cell Count 7.3 X10^3/uL (4.5-11.0)
[2024-09-02] MEDS: NITROGLYCERIN 0.4 MG SL TAB SL (16:31)
[2024-09-02] MEDS: FUROSEMIDE 40 MG/4 ML VIAL IV (16:32)
[2024-09-02 16:37] LABS: Alanine Aminotransferase 41 IU/L (<50); Albumin 4.6 g/dL (3.5-5.0); Albumin Globulin Ratio 1.8 (1.0-2.8); Alkaline Phosphatase 106 U/L (38-126); Aspartate Aminotransferase 44 IU/L (17-59); BUN Creatinine Ratio 24.3 (6-22); Bilirubin Total 0.6 mg/dL (0.2-1.3); Blood Urea Nitrogen 46 mg/dL (9-20); Calcium 9.5 mg/dL (8.4-10.2); Carbon Dioxide 27 mmol/L (22-32); Chloride 105 mmol/L (98-107); Creatine Kinase 306 U/L (55-170); Estimated Glomerular Filt Rate 36 mL/min (>60); Globulin 2.6 g/dL (1.7-4.1); Glucose 198 mg/dL (80-110); Lipase 211 U/L (23-300); Magnesium 2.4 mg/dL (1.6-2.3); Sodium 137 mmol/L (137-145); Total Protein 7.2 g/dL (6.3-8.2)
[2024-09-02 16:43] LABS: HEMOLYSIS 76 (0-50); Potassium 5.5 mmol/L (3.4-5.1)
[2024-09-02 16:48] LABS: NT-proBNP (BNP-Adult 18+) 492 pg/mL (<450); Troponin I 0.018 ng/mL (0.01-0.034)
[2024-09-02 17:09] LABS: D Dimer 653 ng/ml (<500)
--- NOTE | 2024-09-02 18:36 | DI.CT.S_ITS ---
PROCEDURE: CT ANGIO CHEST PE PROTOCOL INDICATIONS: Dyspnea, elevated D-dimer TECHNIQUE: After the administration of intravenous contrast, 2 mm thick sections acquired from the pulmonary apices to the posterior costophrenic angles. 3-dimensional maximum intensity projection (MIP) coronal and sagittal reformats were then acquired through the thorax. For radiation dose reduction, the following was used: automated exposure control, adjustment of mA and/or kV according to patient size. COMPARISON: None. FINDINGS: Image quality: Diagnostic. Pulmonary arteries: Pulmonary arteries are normal in size, and demonstrate no intraluminal filling defects to suggest central pulmonary embolism. Lower Neck: No enlarged lymph nodes. Thyroid: No thyroid nodules which require sonographic follow up, per consensus guidelines. Axillae: No enlarged lymph nodes. Chest Wall: Unremarkable. Bones: Unremarkable. Lungs and Pleura: Moderate centrilobular nodule. Part solid nodule in the left upper lobe measuring 2.5 x 1.6 cm with irregular margins (series 5, image 93). Internal cystic changes present. Diffuse bronchial thickening, with multiple regions of bronchial secretions. Heart: Heart size is normal. No pericardial effusion. Marked coronary artery calcifications. Thoracic Vessels: No aortic aneurysm. Mediastinum and Frida: No enlarged lymph nodes. Esophagus: No wall thickening. No hiatal hernia. Upper Abdomen: Visualized upper abdomen solid organs and bowel loops appear normal. IMPRESSION: No pulmonary embolus. Marked coronary calcifications. Correlate with angina. Consider troponins. Part solid nodule in the left upper lobe measuring 2.5 x 1.6 cm, with internal cystic change. 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 Recommend outpatient PET-CT or repeat CT in 3 months. Diffuse bronchial thickening with mucous impaction. Findings may indicate infectious or inflammatory bronchitis. Dictated by: Samy Toussaint M.D. on 09/02/2024 at 19:48 Approved by: Samy Toussaint M.D. on 09/02/2024 at 19:52
[2024-09-02 18:40] LABS: Troponin I 0.024 ng/mL (0.01-0.034)
[2024-09-02 20:50] LABS: Troponin I 0.043 ng/mL (0.01-0.034)
[2024-09-02] MEDS: ENOXAPARIN 30 MG/0.3 ML SYRINGE SUBCUT (21:48)
--- NOTE | 2024-09-02 21:57 | PC.NURSE ---
This pt was accepted at [facility] at 2114. I called [facility] bed placement at 2144 and the nursing sewing department supervisor told me that the transfer center had just informed them of this patient and that if I had called earlier he would have been transferred there tonight. I called the transfer center back to get clarification and they said the patient will have to board in our ED until there are discharged tomorrow 09/03
[2024-09-03] VITALS (36 sets, daily range): BP systolic 150–214; BP diastolic 62–94; PULSE 55–85; RESP 11–24; O2SAT 92–98
--- NOTE | 2024-09-03 01:10 | PC.NURSE ---
PT states after walking to the bathroom, started to feel anxious with increased shortness of breath. reports this is how he had felt at home which brought him this evening. Instructed pt he could no longer ambulate to the bathroom to prevent stress on his heart. Pt stated understanding.
[2024-09-03] MEDS: TRAZODONE 50 MG TABLET PO (01:21)
[2024-09-03 08:22] LABS: Creatine Kinase 221 U/L (55-170)
[2024-09-03 08:34] LABS: Troponin I 0.026 ng/mL (0.01-0.034)
[2024-09-03] MEDS: FUROSEMIDE 40 MG/4 ML VIAL 20 MG IV (09:00)
[2024-09-03] MEDS: AMLODIPINE 5 MG TABLET 10 MG PO (09:00)
[2024-09-03] MEDS: ATORVASTATIN 20 MG TABLET 80 MG PO (09:01)
[2024-09-03] MEDS: GABAPENTIN 400 MG CAPSULE PO (09:02)
[2024-09-03] MEDS: LOSARTAN 50 MG TABLET 100 MG PO (09:02)
[2024-09-03] MEDS: GLIMEPIRIDE 2 MG TABLET 4 MG PO (09:03)
[2024-09-03] MEDS: ENOXAPARIN 30 MG/0.3 ML SYRINGE SUBCUT (09:05)
--- NOTE | 2024-09-03 10:58 | DI.ECHO.S_ITS ---
[facility] +---------+ Hospital : : [address] : : [place] : : [address] : : Phone: [phone] Echocardiogram Report + + :Name: GLORIA DAY Study Date: 09/03/2024 Height: 68 in : :[facility] [employer] [facility] ReadingLocation: Weight: 220 lb : : Gender: Male BSA: 2.1 m2 : :: 1950 Age: 74 yrs BP: 166/72 mmHg: :Reason For Study: CONGESTIVE HEART FAILURE : :Ordering Physician: FARRAH, : :EDIE Performed By: Cindy Garcia : :Referring: EDIE YAN : + + Interpretation Summary 1) Mildly to moderately increased left ventricular thickness (concentric) with normal size, normal wall motion, and normal systolic function (EF 60-65%). 2) Normal right ventricular size and function. 3) No significant valvular abnormalities. 4) Hypertension present during the study (BP 166/72mmHg). 5) No prior Echo available for comparison. Procedure: A two-dimensional transthoracic echocardiogram with color flow and Doppler was performed. The study quality was technically adequate. There is no prior echocardiogram noted for this patient. The patient was in sinus rhythm with heart rates between 60-77 bpm during the exam. Left Ventricle: The left ventricle is normal in size. There is mild-moderate concentric left ventricular hypertrophy. The ejection fraction is estimated to be 60-65%. Left ventricular systolic function appears normal without focal wall motion abnormalities. Diastolic parameters suggest a relaxation abnormality of the left ventricle, consistent with probable normal filling pressures. Right Ventricle: The right ventricle is normal in size and function. Atria: The left atrial size is normal. Right atrial size is normal. There is no Doppler evidence for an interatrial shunt. Mitral Valve: The mitral valve leaflets appear to open well. There is no mitral regurgitation noted. Aortic Valve: The aortic valve is trileaflet. The aortic valve opens well. There is no aortic valve stenosis. No aortic regurgitation is present. Tricuspid Valve: The tricuspid valve leaflets are thin and pliable. No tricuspid regurgitation. Pulmonary artery pressures cannot be estimated because of the lack of a measurable TR jet velocity. Pulmonic Valve: The pulmonic valve is not well visualized. There is no pulmonic valvular regurgitation. Great Vessels: The aortic root is normal size. The ascending aorta could not be visualized. The IVC is of normal diameter and collapses greater than 50% with a sniff. This suggests a low right atrial pressure of 3 mm Hg. Pericardium/ Pleura There is no pericardial effusion. There is no pleural effusion. MMode/2D Measurements & Calculations LVIDd: 4.7 cm LVOT diam: 2.2 cm LVIDs: 3.3 cm Ao root diam: 3.3 cm FS: 29.7 % IVSd: 1.6 cm LVPWd: 1.2 cm LV goodwin. diameter/BSA (cm/m^2): 2.2 LV sys. diameter/BSA (cm/m^2): 1.5 LA A2 area: 14.7 cm2 RA long axis: 4.2 cm LA A4 area: 13.9 cm2 RA area: 12.5 cm2 LA length (vol): 4.2 cm RA vol: 32.0 ml LA vol: 41.4 ml RA : 15.0 ml/m2 LA vol index: 19.4 ml/m2 IVC diam: 1.8 cm RVD1 (basal): 3.5 cm RVD2 (mid): 2.8 cm TAPSE: 2.1 cm Doppler Measurements & Calculations Ao V2 max: 142.8 cm/sec LVOT Max Juan Luis: 130.2 cm/sec Ao V2 mean: 112.2 cm/sec LV V1 max P.8 mmHg Ao max P.2 mmHg LV V1 VTI: 29.4 cm Ao mean P.3 mmHg TORI(I,D): 3.8 cm2 Ao V2 VTI: 30.3 cm TORI(V,D): 3.5 cm2 sev ratio: 0.97 TORI indexed to BSA (cm^2/m^2): 1.8 MV E max juan luis: 71.6 cm/sec PA V2 max: 118.8 cm/sec MV A max juan luis: 105.3 cm/sec PA V2 mean: 89.9 cm/sec MV E/A: 0.68 PA mean P.4 mmHg Med Peak E' Juan Luis: 7.3 cm/sec PA pr(Accel): 27.6 mmHg E/E' med: 9.8 Lat Peak E' Juan Luis: 7.2 cm/sec E/E' lat: 10.0 E/e' average: 9.9 MV dec time: 0.25 sec SV([facility]): 114.0 ml Reading Physician:12:00 PM
[2024-09-03] MEDS: INSULIN LISPRO 100 UNIT/ML 3ML VIAL SUBCUT (12:18)
== END 2024-09-03 13:12 | disposition short-term general hospital (02) ==
PROVIDERS: Student in an Organized Health Care Education/Training Program; Emergency Provider Emergency Medicine; PCP Family Medicine
DX: R07.9 Chest pain, unspecified (principal); R06.00 Dyspnea, unspecified; R91.8 Other nonspecific abnormal finding of lung field; E87.5 Hyperkalemia; R79.89 Other specified abnormal findings of blood chemistry; Z86.73 Personal history of transient ischemic attack (TIA), and cerebral infarction without residual deficits
CPT/HCPCS: 36415; 71045; 71275; 80053; 82550; 82962; 83690; 83735; 83880; 84484; 85025; 85379; 85610; 85730; 93005; 93010; 93306; 96372; 96374; 96376; 99285; J1650; J1815; J1940; Q9967

== ENCOUNTER → 2024-09-12 10:49 | Outpatient (CLI) | payer MEDICARE, OTHER, SELFPAY ==
[2024-09-12 12:36] LABS: Hemoglobin A1C% w Est Avg Glu 7.9 % (4.0-6.0)
[2024-09-12 12:56] LABS: BUN Creatinine Ratio 18.2 (6-22); Blood Urea Nitrogen 35 mg/dL (9-20); Calcium 9.2 mg/dL (8.4-10.2); Carbon Dioxide 28 mmol/L (22-32); Chloride 101 mmol/L (98-107); Estimated Glomerular Filt Rate 36 mL/min (>60); Glucose 215 mg/dL (80-110); HEMOLYSIS < 15 (0-50); Sodium 135 mmol/L (137-145)
[2024-09-12 12:58] LABS: Potassium 6.1 mmol/L (3.4-5.1)
[2024-09-12 17:02] LABS: Creatinine Urine Random 28.04 mg/dL
[2024-09-12 17:06] LABS: Microalbumin Urine Random 18.9 mg/dL (0-1.6)
== END ==
PROVIDERS: PCP Family Medicine; Referring Provider Family Medicine; Visit Provider Family Medicine
DX: E11.22 Type 2 diabetes mellitus with diabetic chronic kidney disease (principal); I10 Essential (primary) hypertension; Z79.4 Long term (current) use of insulin; I25.10 Atherosclerotic heart disease of native coronary artery without angina pectoris; Z95.5 Presence of coronary angioplasty implant and graft
CPT/HCPCS: 36415; 80048; 82043; 82570; 83036

== ENCOUNTER 2024-09-14 12:16 | Emergency (ER) | payer MEDICARE, OTHER, SELFPAY ==
[2024-09-14] VITALS (22 sets, daily range): BP systolic 146–235; BP diastolic 56–103; PULSE 55–72; RESP 10–29; TEMP 36.9; O2SAT 91–97; BMI 34.2
--- NOTE | 2024-09-14 12:24 | ED_ITS ---
HPI - SOB/Dyspnea General Chief Complaint: Shortness of Breath/Dyspnea Stated Complaint: SOB Time Seen by Provider: 09/14/24 12:24 History of Present Illness HPI Narrative: 74-year-old male history of CVA hypertension presenting for worsening/persistent shortness of breath, was seen here on 09/02/2024 for shortness of breath, at that time patient noted to have new lung mass was transferred to [place] given patient with elevated heart score in setting of chest pain, patient states that when he was there he had 2 stents placed was discharged home on aspirin statin Plavix and has been compliant with this, he returns today for persistent stent/worsening shortness breath started yesterday. Related Data Home Medications Medication Instructions Recorded Confirmed albuterol sulfate 90 mcg/actuation 2 puff inhalation Q4HR PRN 06/12/24 09/12/24 aerosol inhaler Shortness Of Breath Or Wheezing atorvastatin 80 mg tablet 80 mg PO DAILY 07/04/24 09/12/24 clopidogrel 75 mg tablet 75 mg PO DAILY 07/04/24 09/12/24 gabapentin 400 mg capsule 400 mg PO BID 07/04/24 09/12/24 insulin glargine 100 unit/mL (3 50 unit SUBCUT DAILY 07/04/24 09/12/24 mL) subcutaneous pen (Lantus Solostar U-100 Insulin) carvedilol 6.25 mg tablet mg PO BID 09/12/24 09/12/24 ezetimibe 10 mg tablet mg PO DAILY 09/12/24 09/12/24 nitroglycerin 0.4 mg sublingual mg sublingual 09/12/24 09/12/24 tablet ondansetron 4 mg disintegrating mg PO DAILY PRN 09/12/24 09/12/24 tablet Previous Rx's Medication Instructions Recorded trazodone 50 mg tablet 50 mg PO BEDTIME PRN sleep #90 tabs 07/27/24 amlodipine 10 mg tablet 10 mg PO DAILY #90 tabs 07/30/24 glimepiride 4 mg tablet 4 mg PO BID #180 tabs 07/30/24 losartan 100 mg tablet 100 mg PO DAILY blood pressure 08/14/24 #100 tabs pioglitazone 15 mg tablet (Actos) 15 mg PO DAILY diabetes #100 tabs 08/14/24 Allergies Allergy/AdvReac Type Severity Reaction Status Date / Time No Known Drug Allergies Allergy Verified 09/12/24 09:49 Review of Systems Review of Systems Narrative: General: Denies fever, chills, weight loss HEENT: Denies headache, eye drainage, eye irritation, head trauma, sore throat, voice change Cardiovascular: Denies any chest pain, palpitations, shortness of breath, tachycardia Respiratory: Positive shortness of breath, denies cough, wheeze, stridor GI/: Denies any abdominal pain, nausea, vomiting, diarrhea, bright red blood per rectum, melanotic stools, urinary frequency, urinary retention, dysuria, hematuria MSK: Denies any joint pain, muscle pains, swelling Skin: Denies any rashes, lesions, discoloration Neuro: Denies any headache, lightheadedness, dizziness, fainting, weakness Psych: Denies SI/HI Patient History Medical History (Updated 09/14/24 @ 16:06 by Hector Grimm DO) CKD (chronic kidney disease) stage 3, GFR 30-59 ml/min CAD (coronary artery disease) History of stroke Hyperlipidemia, unspecified Benign essential hypertension Type 2 diabetes mellitus with chronic kidney disease, with long-term current use of insulin Surgical History (Updated 09/12/24 @ 10:44 by Kim Rogers DO) Stented coronary artery Social History Smoking Status: Former smoker Smoking Status: Former smoker Exam Narrative Exam Narrative: General: Cooperative, comfortable, well-developed, not in acute distress HEENT: Normocephalic, atraumatic, PERRLA, normal sclera, eyelids normal, Neck: Active full range of motion, atraumatic Chest: Normal to inspection, negative crepitus, no overlying erythema ecchymosis Respiratory: Patient with mild dyspnea with conversation, not in acute respiratory distress, clear to auscultation bilaterally negative cough, wheeze, tachypnea, rhonchi, rales Cardiology: Regular rate rhythm negative gallop, murmur, rubs GI/: Normal to inspection, soft, nonrigid, no tenderness to palpation, exam deferred MSK: Full range of active range of motion of all 4 extremities, atraumatic Skin: No rashes lesions noted Neuro: Alert awake oriented x3, moves all 4 extremities spontaneously, cranial nerves intact, able to answer all questions appropriately follows commands appropriately Psych: Cooperative, negative suicidal or homicidal ideations Initial Vital Signs Initial Vital Signs: Vital Signs Pulse Rate 69 09/14/24 12:22 Respiratory Rate 29 H 09/14/24 12:22 Pulse Oximetry 96 09/14/24 12:22 Course Orders Ordered: ED Orders 09/14/24 12:27 XR chest 1V Stat EKG-12 Lead Stat 09/14/24 12:33 Complete Blood Count AUTO DIFF Stat Comprehensive Metabolic Panel Stat Lactate (Lactic Acid) Stat NT-proBNP (BNP-Adult 18+) Stat Prothrombin Time INR Stat Troponin I Stat 09/14/24 14:34 Trop I [Troponin I] Stat Discontinued Medications Furosemide (Furosemide 40 Mg/4 Ml Vial) 40 mg IV NOW ONE Stop: 09/14/24 15:41 Last Admin: 09/14/24 15:44 Dose: 40 mg Documented By: YAAKOV Nitroglycerin (Nitroglycerin 0.4 Mg Sl Tab) 0.4 mg SL NOW ONE Stop: 09/14/24 12:53 Last Admin: 09/14/24 12:58 Dose: 0.4 mg Documented By: VENECIA Vital Signs Vital signs: Vital Signs - 8 hr 09/14/24 12:22 09/14/24 12:25 09/14/24 12:30 Temperature 98.5 F Pulse Rate 69 72 64 Respiratory Rate 29 H 24 20 Blood Pressure 235/103 H Pulse Oximetry 96 96 96 Oxygen Delivery Method Room Air 09/14/24 12:58 09/14/24 13:00 09/14/24 13:01 Temperature Pulse Rate 60 60 Respiratory Rate 19 Blood Pressure 170/79 H 170/79 H Pulse Oximetry 97 Oxygen Delivery Method 09/14/24 13:01 09/14/24 13:05 09/14/24 13:05 Temperature Pulse Rate 60 63 Respiratory Rate 15 10 L Blood Pressure 146/56 H Pulse Oximetry 96 95 Oxygen Delivery Method 09/14/24 13:10 09/14/24 13:10 09/14/24 13:15 Temperature Pulse Rate 63 Respiratory Rate 14 Blood Pressure 154/71 H 156/73 H Pulse Oximetry 96 Oxygen Delivery Method 09/14/24 13:15 09/14/24 13:30 09/14/24 13:30 Temperature Pulse Rate 61 59 L Respiratory Rate 18 14 Blood Pressure 161/79 H Pulse Oximetry 96 97 Oxygen Delivery Method 09/14/24 13:48 09/14/24 13:48 09/14/24 14:00 Temperature Pulse Rate 55 L Respiratory Rate 18 Blood Pressure 191/84 H 182/81 H Pulse Oximetry 96 Oxygen Delivery Method 09/14/24 14:00 09/14/24 14:15 09/14/24 14:15 Temperature Pulse Rate 56 L 56 L Respiratory Rate 15 23 Blood Pressure 188/88 H Pulse Oximetry 96 97 Oxygen Delivery Method 09/14/24 14:30 09/14/24 14:30 09/14/24 14:45 Temperature Pulse Rate 55 L Respiratory Rate Blood Pressure 180/84 H 180/82 H Pulse Oximetry 96 Oxygen Delivery Method 09/14/24 14:45 Temperature Pulse Rate 56 L Respiratory Rate Blood Pressure Pulse Oximetry 95 Oxygen Delivery Method MDM - SOB/Dyspnea Differential Diagnosis Differential diagnosis: Likely congestive heart failure, community acquired pneumonia, asthma with exacerbation and other (ACS, CHF) Lab Data 09/14/24 12:33 09/14/24 12:33 Labs: Lab Results 09/14/24 09/14/24 Range/Units 12:33 14:34 WBC 6.5 (4.5-11.0) X10^3/uL RBC 4.45 L (4.5-5.9) X10^6/uL Hgb 13.9 (13.5-17.5) g/dL Hct 42.2 (41-53) % MCV 94.9 (80-100) fL MCH 31.2 (26-34) PG MCHC 32.9 (30-36) % RDW 13.1 (11.6-14.8) % Plt Count 207 (150-400) X10^3/uL Neut % (Auto) 60.2 (50-75) % Lymph % (Auto) 20.6 L (25-40) % Atkinson % (Auto) 8.1 (3-14) % Eos % (Auto) 10.2 H (2-4) % Baso % (Auto) 0.9 (0-2) % Neut # (Auto) 3900 (3813-1321) /uL Lymph # (Auto) 1300 (7358-3896) /uL Atkinson # (Auto) 500 (0-900) /uL Eos # (Auto) 700 H (0-450) /uL Baso # (Auto) 100 (0-100) /uL PT 11.2 (9.4-12.5) SECONDS INR 1.0 (0.9-1.3) Sodium 138 (137-145) mmol/L Potassium 5.1 (3.4-5.1) mmol/L Chloride 104 (98-107) mmol/L Carbon Dioxide 26 (22-32) mmol/L BUN 35 H (9-20) mg/dL Creatinine 1.97 H (0.66-1.25) mg/dL Estimated GFR 35 L (>60) mL/min BUN/Creatinine Ratio 17.8 (6-22) Glucose 146 H (80-110) mg/dL Lactate 0.9 (0.7-2.1) mmol/L Calcium 9.3 (8.4-10.2) mg/dL Total Bilirubin 0.4 (0.2-1.3) mg/dL AST 36 (17-59) IU/L ALT 36 (<50) IU/L Alkaline Phosphatase 95 (38-126) U/L Troponin I 0.022 0.022 (0.01-0.034) ng/mL NT-Pro-B Natriuret Pep 702 H (<450) pg/mL Total Protein 7.3 (6.3-8.2) g/dL Albumin 4.4 (3.5-5.0) g/dL Globulin 2.9 (1.7-4.1) g/dL Albumin/Globulin Ratio 1.5 (1.0-2.8) Imaging Data Chest x-ray: Radiologist's Impression: [address] [address] XRay Report Signed Patient: Myles Quigley MR#: [id number] : 1950 Acct:[id number] Age/Sex: 74 / M Date of Service: 09/14/24 Loc: ED Accession Number: [id number] Procedure: XR chest 1V Ordering Provider: Hector Grimm D.O. PROCEDURE: XR CHEST 1V INDICATIONS: Shortness of breath TECHNIQUE: One view of the chest was acquired. COMPARISON: [facility], CR, XR CHEST 1V, 09/02/2024, 16:12. [facility], , XR CHEST 1V, 08/09/2024, 10:58. FINDINGS: Surgical changes and devices: None. Lungs and pleura: Lungs are clear. No pleural effusions or pneumothorax. Mediastinum: Mediastinal contours appear normal. Heart size is normal. Bones and chest wall: No suspicious bony lesions. Overlying soft tissues appear unremarkable. IMPRESSION: No acute cardiopulmonary abnormality is seen. Mildly reduced inspiratory volume. ECG Data Interpretation: EKG interpreted ED physician sinuses 65 beats per minute QTC 403, normal axis nonspecific ST changes no STEMI MDM Narrative Medical decision making narrative: 74-year-old male history of hypertension hyperlipidemia adenocarcinoma comes into the ED from home for evaluation of shortness of breath, patient was seen here few weeks ago transfer [place] did have 2 stents placed was discharged home on aspirin statin Plavix has been compliant with this, however he states that he has been having persistent shortness of breath, at that time he was informed that he had a possible malignancy in his lung is still in the process of following up with a global logistics manager, however patient presents due to persistent shortness of breath. Patient noted to be hypertensive initially but not complaining of any headache visual disturbances patient was given nitro and Lasix with improvement/complete resolution of his symptoms and improvement of his blood pressure. I did offer patient transfer and admission to [place] given his recent intervention, however he states that he feels ?blu states that he would rather be discharged home and call his primary care doctor and corrective therapy aide in outpatient setting states that he will come back if he states/feels worse. Patient not requiring any supplemental oxygen nontoxic strict return precautions given he verbalized understanding of this and agrees to being discharged home with outpatient follow up. Discharge Plan Departure Patient Disposition: Home Clinical Impression: Acute dyspnea Activity Restrictions/Additional Instructions: Please follow-up with your corrective therapy aide and your primary care doctor Please read the discharge instructions sheet carefully and bring all papers to all doctor follow-up visits, as it may contain information that your doctor may want to see. Disease processes change and evolve, if your symptoms worsen or if you develop any new symptoms that are concerning to you please return for evaluation. Your evaluation today does not show any evidence of any life- threatening/serious illnesses requiring admission to the hospital or surgery. Please follow-up with your doctor for re-evaluation in approximately 1 day. Seek immediate medical attention for any worrisome symptoms. *If you do not have a primary care provider please contact the [facility] Resource line at [phone]. They will ask some questions about your medical history and help get you set up with a doctor in the community. Prescriptions: No Action albuterol sulfate 90 mcg/actuation HFA aerosol inhaler 2 puff inhalation Q4HR PRN (Reason: Shortness Of Breath Or Wheezing) atorvastatin 80 mg tablet 80 mg PO DAILY clopidogrel 75 mg tablet 75 mg PO DAILY gabapentin 400 mg capsule 400 mg PO BID insulin glargine [Lantus Solostar U-100 Insulin] 100 unit/mL (3 mL) insulin pen 50 unit SUBCUT DAILY Patient Comments: [NO ORIGINAL SIG] trazodone 50 mg tablet 50 mg PO BEDTIME PRN (Reason: sleep) Qty: 90 3RF amlodipine 10 mg tablet 10 mg PO DAILY Qty: 90 3RF glimepiride 4 mg tablet 4 mg PO BID Qty: 180 3RF losartan 100 mg tablet 100 mg PO DAILY Qty: 100 3RF pioglitazone [Actos] 15 mg tablet 15 mg PO DAILY Qty: 100 3RF ezetimibe 10 mg tablet PO DAILY Patient Comments: [NO ORIGINAL SIG] carvedilol 6.25 mg tablet PO BID Patient Comments: [NO ORIGINAL SIG] ondansetron 4 mg tablet,disintegrating PO DAILY PRN Patient Comments: [NO ORIGINAL SIG] nitroglycerin 0.4 mg tablet, sublingual sublingual Referrals: Kim Rogers DO [Primary Care Provider] - Stand Alone Forms: Patient Portal/API/Survey
--- NOTE | 2024-09-14 12:27 | DI.RAD.S_ITS ---
PROCEDURE: XR CHEST 1V INDICATIONS: Shortness of breath TECHNIQUE: One view of the chest was acquired. COMPARISON: [facility], CR, XR CHEST 1V, 09/02/2024, 16:12. [facility], CR, XR CHEST 1V, 08/09/2024, 10:58. FINDINGS: Surgical changes and devices: None. Lungs and pleura: Lungs are clear. No pleural effusions or pneumothorax. Mediastinum: Mediastinal contours appear normal. Heart size is normal. Bones and chest wall: No suspicious bony lesions. Overlying soft tissues appear unremarkable. IMPRESSION: No acute cardiopulmonary abnormality is seen. Mildly reduced inspiratory volume. Dictated by: Rick Kasper M.D. on 09/14/2024 at 13:09 Approved by: Rick Kasper M.D. on 09/14/2024 at 13:10
--- NOTE | 2024-09-14 12:29 | EKG_ITS ---
[address] [address] Test Date: 2024-09-14 Pat Name: Myles Quigley Department: Room: Gender: Male Molecular Genetic Pathologist: JOHANNA : 1950 Requested By: Order Number: [id number] Reading MD: Hector Roldan Measurements Intervals [place] Rate: 65 P: 71 PA: 170 QRS: 53 QRSD: 102 T: 54 QT: 388 QTc: 403 Interpretive Statements Normal sinus rhythm Electronically Signed On 09-19-2024 23:41:56 PST by Hector Roldan
[2024-09-14 12:41] LABS: Add Manual Diff / Slide Review NO; Basophils Absolute Auto 100 /uL (0-100); Basophils Percent Auto 0.9 % (0-2); Eosinophils Absolute Auto 700 /uL (0-450); Eosinophils Percent Auto 10.2 % (2-4); Hematocrit 42.2 % (41-53); Hemoglobin 13.9 g/dL (13.5-17.5); Lymphocytes Absolute Auto 1300 /uL (1100-4500); Lymphocytes Percent Auto 20.6 % (25-40); Mean Corpuscular HGB Conc 32.9 % (30-36); Mean Corpuscular Hemoglobin 31.2 PG (26-34); Mean Corpuscular Volume 94.9 fL (80-100); Monocytes Absolute Auto 500 /uL (0-900); Monocytes Percent Auto 8.1 % (3-14); Neutrophils Absolute Auto 3900 /uL (1500-7000); Neutrophils Percent Auto 60.2 % (50-75); Platelet Count 207 X10^3/uL (150-400); Red Blood Cell Count 4.45 X10^6/uL (4.5-5.9); Red Cell Distribution Width 13.1 % (11.6-14.8); White Blood Cell Count 6.5 X10^3/uL (4.5-11.0)
[2024-09-14 12:49] LABS: Prothrombin Time 11.2 SECONDS (9.4-12.5)
[2024-09-14 12:53] LABS: Alanine Aminotransferase 36 IU/L (<50); Albumin 4.4 g/dL (3.5-5.0); Albumin Globulin Ratio 1.5 (1.0-2.8); Alkaline Phosphatase 95 U/L (38-126); Aspartate Aminotransferase 36 IU/L (17-59); BUN Creatinine Ratio 17.8 (6-22); Bilirubin Total 0.4 mg/dL (0.2-1.3); Blood Urea Nitrogen 35 mg/dL (9-20); Calcium 9.3 mg/dL (8.4-10.2); Carbon Dioxide 26 mmol/L (22-32); Chloride 104 mmol/L (98-107); Estimated Glomerular Filt Rate 35 mL/min (>60); Globulin 2.9 g/dL (1.7-4.1); Glucose 146 mg/dL (80-110); HEMOLYSIS < 15 (0-50); Potassium 5.1 mmol/L (3.4-5.1); Sodium 138 mmol/L (137-145); Total Protein 7.3 g/dL (6.3-8.2)
[2024-09-14 12:54] LABS: Lactate (Lactic Acid) 0.9 mmol/L (0.7-2.1)
[2024-09-14] MEDS: NITROGLYCERIN 0.4 MG SL TAB SL (12:58)
[2024-09-14 13:05] LABS: NT-proBNP (BNP-Adult 18+) 702 pg/mL (<450); Troponin I 0.022 ng/mL (0.01-0.034)
[2024-09-14 15:05] LABS: Troponin I 0.022 ng/mL (0.01-0.034)
[2024-09-14] MEDS: FUROSEMIDE 40 MG/4 ML VIAL IV (15:44)
== END 2024-09-14 16:28 | disposition home or self-care (01) ==
PROVIDERS: Emergency Provider Student in an Organized Health Care Education/Training Program; PCP Family Medicine
DX: R06.00 Dyspnea, unspecified (principal); I10 Essential (primary) hypertension; Z86.73 Personal history of transient ischemic attack (TIA), and cerebral infarction without residual deficits; I25.10 Atherosclerotic heart disease of native coronary artery without angina pectoris; Z95.5 Presence of coronary angioplasty implant and graft; Z87.891 Personal history of nicotine dependence
CPT/HCPCS: 36415; 71045; 80053; 83605; 83880; 84484; 85025; 85610; 93005; 96374; 99284; J1940